=== PATIENT | male | born 1945 | race Caucasian/White ===

== ENCOUNTER → 2016-11-15 | Outpatient (CLI) | payer OTHER ==
[~2016-11-15] MED LIST: ADVIN25050 INH; ALBUAER2 INH; OMEP40CA PO; RANI300T2 PO; VITA400C15 PO
--- NOTE | 2016-11-15 10:36 | DIAGNOSTIC IMAGING REPORT ---
ULTRASOUND RIGHT GROIN NONVASCULAR CLINICAL HISTORY: Right groin pain. Assess for hernia. COMPARISON STUDY: Abdominal CT dated 06/18/2015. FINDINGS: Real-time grayscale sonography of the right groin is performed to assess for inguinal hernia. No right inguinal hernia is identified. No hernia could be induced by having the patient perform the Valsalva maneuver. No right inguinal adenopathy is seen. IMPRESSION: There is no sonographic evidence of right inguinal hernia as clinically queried. Electronically signed by: Parag Aviles M.D. 11/15/2016 10:35 AM Dictated Date/Time: 11/15/2016 10:34 AM
--- NOTE | 2016-11-15 12:04 | DIAGNOSTIC IMAGING REPORT ---
L-SPINE FLEX/EXT BENDING MIN 6 CLINICAL HISTORY: LOWER BACK PAIN pain COMPARISON STUDY: 03/29/2011 FINDINGS: Moderate levoscoliosis. Considerable degenerative disc change from L1 through L3. No evidence for compression deformity. L3-L4 degenerative osteophytic reaction. IMPRESSION: Degenerative change. As shape scoliosis. No acute process. No change from the prior study. Electronically signed by: Emmanuel Mitchell M.D. 11/15/2016 12:02 PM Dictated Date/Time: 11/15/2016 12:00 PM
== END | disposition home or self-care (01) ==
LOC: C.ULTRBC 09:48
PROVIDERS: ATTEND Family Medicine
DX: K40.90 Unilateral inguinal hernia, without obstruction or gangrene, not specified as recurrent (principal); M54.5 Low back pain; M41.9 Scoliosis, unspecified

== ENCOUNTER → 2016-12-19 | Outpatient (CLI) | payer OTHER | END | disposition home or self-care (01) | LOC: C.LAB 08:39 | PROVIDERS: ATTEND Nutritionist | DX: R53.81 Other malaise (principal) ==

== ENCOUNTER → 2017-06-14 | Outpatient (CLI) | payer OTHER ==
[~2017-06-14] MED LIST changes: +OPTIRAY 320 IV PRN
--- NOTE | 2017-06-14 13:14 | DIAGNOSTIC IMAGING REPORT ---
CT ABD/PELVIS IV AND ORAL CONT CLINICAL HISTORY: Mid abdominal pain. History of bowel resection in 2006 COMPARISON STUDY: 06/18/2015 TECHNIQUE: Following the IV administration of 93 mL of Optiray-320, CT scan of the abdomen and pelvis was performed from the lung bases to the proximal femurs. Images are reviewed in the axial, sagittal, and coronal planes. IV contrast was administered without complication. A dose lowering technique was utilized adhering to the principles of ALARA. CT DOSE: 636.75 mGycm FINDINGS: Lower chest: The heart is normal in size and configuration, without pericardial effusion. The lung bases and pleural spaces are clear. Liver: The contrast-enhanced liver is normal in size, contour, and attenuation. There is no intrahepatic biliary ductal dilatation. The hepatic veins and portal veins are patent. Gallbladder: Unremarkable. Spleen: Normal in size and attenuation. Pancreas: Unremarkable. Adrenal glands: Unremarkable. Kidneys: There is a 1 cm right renal calculus. There is no significant hydronephrosis. No ureteral calculi are visualized. No solid renal masses are visualized. Bowel: There are postsurgical changes at the esophagogastric junction. There are postsurgical changes of a mid transverse colonic anastomosis. There are no transition zones to indicate bowel obstruction. There is no evidence of acute diverticulitis. The appendix is not visualized. Peritoneum: There is no intraperitoneal free air or abdominal ascites. Vasculature: The abdominal aorta is normal in course and caliber. Adenopathy: None. Pelvic viscera: The bladder, and pelvic viscera are unremarkable. Skeletal structures: No destructive osseous lesions are seen. IMPRESSION: 1. No significant change from the preceding study 2. Persistent calcifications the level of the esophagogastric junction, possibly postsurgical 3. Postsurgical changes of a mid transverse colon anastomosis 4. No evidence of bowel obstruction. No evidence of free air 5. 1 cm right renal calculus. Electronically signed by: Roly Hernandez M.D. 06/14/2017 1:13 PM Dictated Date/Time: 06/14/2017 12:51 PM
== END | disposition home or self-care (01) ==
LOC: C.CTS 12:27
PROVIDERS: ATTEND Family Medicine
DX: N20.0 Calculus of kidney (principal); R10.9 Unspecified abdominal pain; Z98.0 Intestinal bypass and anastomosis status

== ENCOUNTER → 2017-06-20 | Outpatient (CLI) | payer OTHER ==
[~2017-06-20] MED LIST changes: -OPTIRAY 320 IV PRN; +SINCALIDE INJ 1.7 MCG in SODIUM CHLORIDE 0.9% 100ML 100 ML IV ONE
--- NOTE | 2017-06-20 13:51 | DIAGNOSTIC IMAGING REPORT ---
NUCLEAR MEDICINE HEPATOBILIARY SCAN WITH EJECTION FRACTION HISTORY: Generalized abdominal pain. COMPARISON: Abdomen and pelvis CT 06/14/2017. TECHNIQUE: Immediately following the intravenous administration of 5.3 mCi Tc-99m Choletec, dynamic anterior abdominal imaging pre/post 1.7 mcg of Kinevac was performed. FINDINGS: Uniform hepatic tracer accumulation is shown. Prompt intrahepatic biliary excretion is seen. The gallbladder and common bile duct are all visualized by 25 minutes. Slight delayed visualization of the small bowel at 74 minutes. The gall bladder ejection fraction following administration of Kinevac was 96% (normal >35%). IMPRESSION: 1. No evidence for cystic duct obstruction. 2. Gallbladder ejection fraction calculated to be 96 %. 3. Slight delayed visualization of the small bowel which is likely a normal variant. Electronically signed by: Israel Leone M.D. 06/20/2017 1:50 PM Dictated Date/Time: 06/20/2017 1:48 PM
== END | disposition home or self-care (01) ==
LOC: C.NUCL 10:18
PROVIDERS: ATTEND Family Medicine
DX: R10.84 Generalized abdominal pain (principal)

== ENCOUNTER → 2018-05-11 | Outpatient (CLI) | payer OTHER ==
[~2018-05-11] MED LIST changes: -SINCALIDE INJ 1.7 MCG in SODIUM CHLORIDE 0.9% 100ML 100 ML IV ONE
== END | disposition home or self-care (01) ==
LOC: C.LABSPEC 14:30
PROVIDERS: ATTEND Family Medicine
DX: B35.1 Tinea unguium (principal)